=== PATIENT | male | born 1980 | race Caucasian/White ===

== ENCOUNTER 2016-06-03 | Outpatient (CLI) | END 2016-06-03 19:57 | disposition critical access hospital (66) | CPT/HCPCS: A0425; A0429 ==

== ENCOUNTER 2016-06-03 20:29 | Emergency (ER) | payer BC ==
[2016-06-03] MEDS ORDERED: oxyCOD/ACETAMIN 5 MG/325 MG TABLET PO STA (20:39)
[2016-06-03] MEDS ORDERED: oxyCOD/ACETAMIN 5 MG/325 MG TABLET PO ONE (20:40)
[2016-06-03] MEDS ORDERED: ACETAMINOPHEN 325 MG TABLET PO STA (21:25)
[2016-06-03] MEDS ORDERED: ACETAMINOPHEN 325 MG TABLET PO ONE (21:26)
== END 2016-06-03 21:36 | disposition home or self-care (01) ==
DX: S89.91XA Unspecified injury of right lower leg, initial encounter (principal); Y04.0XXA Assault by unarmed brawl or fight, initial encounter; Y93.89 Activity, other specified; F17.200 Nicotine dependence, unspecified, uncomplicated
CPT/HCPCS: 73562; 99283; A9270

== ENCOUNTER 2016-06-20 13:59 | Outpatient (CLI) | payer BC | END 2016-06-20 14:00 | disposition home or self-care (01) | DX: S83.511A Sprain of anterior cruciate ligament of right knee, initial encounter (principal); S82.141A Displaced bicondylar fracture of right tibia, initial encounter for closed fracture; S83.411A Sprain of medial collateral ligament of right knee, initial encounter; S83.261A Peripheral tear of lateral meniscus, current injury, right knee, initial encounter; S83.014A Lateral dislocation of right patella, initial encounter; M25.561 Pain in right knee; M23.91 Unspecified internal derangement of right knee; R60.0 Localized edema ==

== ENCOUNTER 2016-08-15 09:19 | Day surgery (SDC) | payer BC ==
[2016-08-15] MEDS ORDERED: LACTATED RINGERS 1,000 ML IV ONE (09:28)
[2016-08-15] MEDS ORDERED: HYDROmorphone 1 MG/ML SYRINGE IVP ONE (11:19)
[2016-08-15] MEDS ORDERED: ONDANSETRON 4 MG/2 ML VIAL IVP ONE (11:19)
[2016-08-15] MEDS ORDERED: PROPOFOL 200 MG/20 ML VIAL IVP ONE (11:19)
[2016-08-15] MEDS ORDERED: LIDOCAINE-MPF 2% 5 ML VIAL IM ONE (11:19)
[2016-08-15] MEDS ORDERED: DEXAMETHASONE 4 MG/ML VIAL IVP ONE (11:19)
[2016-08-15] MEDS ORDERED: ACETAMINOPHEN 1,000 MG/100 ML VIAL IV ONE (11:19)
[2016-08-15] MEDS ORDERED: MIDAZOLAM 2 MG/2 ML VIAL IVP ONE (11:19)
[2016-08-15] MEDS ORDERED: KETOROLAC 30 MG/ML VIAL IVP ONE (11:19)
[2016-08-15] MEDS ORDERED: BUPIVACAINE 0.5% PF 30 ML VIAL INFIL ONE ×2 (11:32→12:16)
[2016-08-15] MEDS: oxyCOD/ACETAMIN 5 MG/325 MG TABLET PO ONE ×2 (13:27→14:05)
== END 2016-08-15 09:20 | disposition home or self-care (01) ==
PROC: 0SBC4ZZ Excision of Right Knee Joint, Percutaneous Endoscopic Approach (ICD-10-PCS; 2016-08-15)
PROC: 0MUN4KZ Supplement Right Knee Bursa and Ligament with Nonautologous Tissue Substitute, Percutaneous Endoscopic Approach (ICD-10-PCS; principal; 2016-08-15 10:25)
DX: S83.511A Sprain of anterior cruciate ligament of right knee, initial encounter (principal); S83.281A Other tear of lateral meniscus, current injury, right knee, initial encounter; X58.XXXA Exposure to other specified factors, initial encounter; M94.261 Chondromalacia, right knee; J44.9 Chronic obstructive pulmonary disease, unspecified; F17.200 Nicotine dependence, unspecified, uncomplicated
CPT/HCPCS: 29881; 29888; A9270; C1762; C1776; J0131; J1170; J7120